=== PATIENT | female | born 1980 | race Caucasian/White ===

== ENCOUNTER 2024-06-22 08:45 | Emergency (ER) | payer OTHER, MEDICAID, SELFPAY ==
[2024-06-22 08:56] VITALS: BP 145/74; PULSE 76; RESP 16; TEMP 36.4; O2SAT 98
--- NOTE | 2024-06-22 09:29 | ED_ITS ---
HPI - Female Genitourinary General Chief complaint: Urogenital-Female Stated complaint: Urinary Problem Source: patient and RN notes reviewed Mode of arrival: ambulatory Limitations: no limitations History of Present Illness HPI Narrative: 44 y/o female presented for c/o changes in urine color intermittently for one month. Says sometimes the urine is dark in color. Pt also reports occasional mid back pain bilaterally. Says she has had kidney stones in the past but this does not feel similar. Denies dysuria, frequency, urgency, hematuria, nausea, vomiting, abdominal pain, constipation, diarrhea, fevers or chills. LMP ended 3 days ago. Denies concern for or std. Related Data Allergies Allergy/AdvReac Type Severity Reaction Status Date / Time eszopiclone Allergy Severe lips turn Verified 07/16/16 19:11 blue Review of Systems Review of Systems: CONSTITUTIONAL: Denies body aches, fever, chills, or sweats. CARDIOVASCULAR: Denies chest pain, palpitations, or edema. RESPIRATORY: Denies cough or dyspnea. GASTROINTESTINAL: Denies abdominal pain, nausea, vomiting, or diarrhea. GENITOURINARY: Reports change in urine color, flank pain. denies dysuria, frequency, urgency, hematuria SKIN: Denies rash PMFSH Comments At time of signature, I have reviewed and agree with nursing past medical, surgical, social and family history unless otherwise noted. Please see nursing chart for further information. There is no relevant family history pertinent to the presenting complaint Exam Narrative: GENERAL: Well-appearing ENT: Mucous membranes pink and moist. NECK: Normal AROM. Supple. CHEST: No respiratory distress. Clear to auscultation. HEART: Regular rate and rhythm. ABDOMEN: Soft, nontender, nondistended, normal active bowel sounds. mild bilateral CVA tenderness SKIN: Warm, dry, no rash. NEURO: No focal deficits. Alert and oriented x3. Gait steady. PSYCH: Normal affect. No signs of depression or anxiety. Course Course Emergency Course: Patient is aware of diagnosis, understands and agrees to treatment plan. Anticipatory guidance given. Patient agrees to follow-up as directed and is aware of reasons to seek care at the emergency department. Portions of this record may have been created with voice recognition software Level of Care: Express Care Visit Vital Signs Vital signs: Vital Signs Temperature 97.6 F 06/22/24 08:56 Pulse Rate 76 06/22/24 08:56 Respiratory Rate 16 06/22/24 08:56 Blood Pressure 145/74 H 06/22/24 08:56 Pulse Oximetry 98 06/22/24 08:56 Oxygen Delivery Room Air 06/22/24 08:56 Temperature 97.6 F 06/22/24 08:56 Pulse Rate 76 06/22/24 08:56 Respiratory Rate 16 06/22/24 08:56 Blood Pressure 145/74 H 06/22/24 08:56 Pulse Oximetry 98 06/22/24 08:56 Oxygen Delivery Room Air 06/22/24 08:56 Reviewed MDM - Female Genitourinary MDM Narrative Medical decision making narrative: Will culture urine and treat accordingly. Discussed physical exam findings and urine dip. Advised supportive measures and signs/symptoms to go to the ER. Pt is appropriate for outpt treatment and f/u. Differential Diagnosis Differential diagnosis: Likely urinary tract infection, vaginitis, cystitis and other (nephrolithiasis, renal colic, musculoskeletal pain, pyelonephritis) Discharge Plan Discharge Clinical Impression: Back pain Patient Disposition: Home, Self-Care Condition: Stable Instructions: Antibiotic Form, Urinary Tract Infection in Women (ED) Additional Instructions: Your urine will be sent of for a culture to determine if bacteria is causing your symptoms. If the culture shows a UTI, you will be notified and an antibiotic will be called in for you. Increase water intake you will need to follow up with your PCP for further evaluation and treatment if symptoms persist, call today to schedule follow-up appointment. Go to the ER for any worsening symptoms or concerns. Patient Language: Serbian Follow-up/Referrals: PHYSICIAN NOT ON STAFF,NONSTAFF [Primary Care Provider] - Time of Disposition: 09:38
[2024-06-22 09:31] LABS: EDUAAPPEAR Clear; EDUABILI Negative (Negative); EDUABLOOD 1+ (Negative); EDUACOLOR1 Yellow; EDUAGLUCOSE Negative (Negative); EDUAKETONE Negative (Negative); EDUALEUKO Negative (Negative); EDUANITRATE Negative (Negative); EDUAPROTEIN Negative (Negative); EDUASPGRAVITY 1.025; EDUAUROBILI 0.2
== END 2024-06-22 09:43 | disposition home or self-care (01) ==
PROVIDERS: Emergency Provider Nurse Practitioner Family
DX: M54.9 Dorsalgia, unspecified (principal)
CPT/HCPCS: 81003; 87086; 99213; G0463